=== PATIENT | female | born 1990 | race Caucasian/White ===

== ENCOUNTER 2018-08-16 18:58 | Emergency (ER) | payer SELFPAY ==
[~2018-08-16] VITALS: Ht 162.6 cm; Wt 73.5 kg
[2018-08-16 19:40] VITALS: Ht 162.6 cm; Wt 73.5 kg
[2018-08-16] MEDS ORDERED: KETOROLAC 60 MG INJ IM STA (23:49)
[2018-08-17] MEDS ORDERED: ACYC400T2 PO (01:17)
[2018-08-17] MEDS ORDERED: CEPH-443 PO (01:17)
[2018-08-17] MEDS ORDERED: FLUC150T PO (01:17)
[2018-08-17 01:22] VITALS: BP 111/69; PULSE 80; RESP 19
[2018-08-17] MEDS ORDERED: FLUCONAZOLE 150 MG TAB PO ONE (01:30)
--- NOTE | 2018-08-18 22:39 | ERD ---
ER Documentation Chief Complaint Chief Complaint DX WITH YEAST INFECTION AT CLINIC. C/O VAGINAL PAIN HPI 27-year-old female patient with patient diabetes presents the ED pain and itchiness. Patient reports that the last time this happened, she had a diagnosis of herpes, feels like it is burning on the outside of her vagina. States that she also has right she is a discharge, and is also itchy. Patient reports that she has one sexual partner. States that her last menstruation was on July 22, 2017. Patient is a . Patient reports that she has been taking Monistat for the last 2 days out of a 7-day course. Denies any hematuria, nausea, vomiting, abdominal pain, chest pain, pelvic pain, shortness of breath. ROS All systems reviewed and are negative except as per history of present illness. Medications Home Meds Active Scripts Fluconazole* (Diflucan*) 150 Mg Tablet, 150 MG PO ONCE, #2 TAB repeat 1 tab on day 4 and day 8 (every 72 hours) Prov:BALBIR TEMPLE PA-C 08/17/18 Cephalexin* (Keflex*) 500 Mg Capsule, 500 MG PO QID for 7 Days, CAP Prov:BALBIR TEMPLE PA-C 08/17/18 Acyclovir* (Acyclovir*) 400 Mg Tablet, 400 MG PO TID for 10 Days, TAB Prov:BALBIR TEMPLE PA-C 08/17/18 Allergies Allergies: Coded Allergies: No Known Allergy (Unverified , 08/17/18) PMhx/Soc History of Surgery: Yes ( X1) Hx Miscellaneous Medical Probl: Yes (DM, GENITAL HERPES) Hx Alcohol Use: Yes (OCCASIONAL) Hx Substance Use: No Hx Tobacco Use: No Smoking Status: Never smoker FmHx Family History: No diabetes, No coronary disease Physical Exam Vitals Vital Signs Date Temp Pulse Resp B/P (MAP) Pulse Ox O2 O2 Flow FiO2 Time Delivery Rate 08/17/18 98.6 80 19 111/69 98 Room Air 01:22 (83) 08/16/18 98.5 87 16 129/75 100 19:40 (93) Physical Exam Const: Dco-xab-[id number], well-nourished. In no acute distress. Head: Atraumatic, normocephalic Eyes: Normal Conjunctiva without injection. No purulent discharge. ENT: Normal external ear, nose. Moist oropharynx without tonsillar exudates. Non-erythematous pharynx. Uvula midline. No drooling. No trismus. Neck: No cervical midline tenderness. Full range of motion. No meningismus. No cervical lymphadenopathy. No JVD. Resp: Clear to auscultation bilaterally. No wheezing, rhonchi, rales, or crackles. No accessory muscle use. No retractions. Cardio: Regular rate and rhythm. No murmurs, rubs or gallops. Abd: Soft, nontender, non distended. Normal bowel sounds. No palpable masses. No rebound tenderness. No guarding. Negative McBurney's point. Negative psoas sign. Negative obturator sign. : See MDM Skin: No petechiae or rashes Back: No midline tenderness. No CVA tenderness. Ext: No cyanosis, or edema. Neur: Awake and alert. Normal gait. Normal coordination. Psych: Normal Mood and Affect Results 24 hrs Laboratory Tests Test 08/16/18 22:58 08/16/18 23:00 08/16/18 23:02 08/17/18 00:29 Chlamydia NOT DETECTED trachomatis RNA (TMA) Chlamydia/GC SEE NOTE Comment Neisseria NOT DETECTED gonorrhoeae RNA (TMA) Bedside Urine pH 7.0 (LAB) Bedside Urine Negative Protein (LAB) Bedside Urine 0.50% Glucose (UA) Bedside Urine 4+ Ketones (LAB) Bedside Urine Blood Trace-intact Bedside Urine Positive Nitrite (LAB) Bedside Urine 1+ Leukocyte Esterase (L POC Beta HCG, NEGATIVE Qualitative Bedside Glucose 244 mg/dL Current Medications Medications Dose Sig/Delfina Start Time Status Last (Trade) Ordered Route PRN Stop Time Admin Dose Reason Admin Ketorolac 60 mg ONCE STAT 08/16/18 DC 08/16/18 Tromethamine IM 23:49 23:53 (Toradol) 08/16/18 23:50 Fluconazole 150 mg ONCE ONCE 08/17/18 DC 08/17/18 (Diflucan) PO 01:30 01:29 08/17/18 01:31 Procedures/MDM 27-year-old female patient with a past medical history of diabetes presents to ED complaining of having diagnosis of yeast infection, also concerned about herpes. 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 Patient will be treated for urinary tract infection. Based on patient's pelvic exam, patient also was noted to have grouped vesicles on the lower portion, patient will also be treated for herpes. Patient's wet mount came back with 1+ yeast, patient has diabetes, patient given her first dose of Diflucan here in the ED will be given 2 additional tabs to be taken every 72 hours apart. Diagnosis: Female Genital Symptoms Discharge medications: Acyclovir, Diflucan, Keflex Follow up with primary care physician in 1-2 days for referral to see THERMOPLASTIC TECHNICIAN. Instructed patient to return to the ED sooner for any worsening symptoms. Patient's questions were answered. Patient is hemodynamically stable. Patient understood and agreed with discharge plan. Patient discharged stable. Disclaimer: Inadvertent spelling and grammatical errors are likely due to EHR/dictation software use and do not reflect on the overall quality of patient care. Also, please note that the electronic time recorded on this note does not necessarily reflect the actual time of the patient encounter. Departure Diagnosis: Primary Impression: Female genital symptoms Condition: Stable Patient Instructions: Hyperglycemia (High Blood Sugar), Urinary Tract Infections in Women, Vaginal Infection: Yeast (Candidiasis), Herpes Genitalis, Hsv: Type Ii Referrals: [facility] YOU HAVE RECEIVED A MEDICAL SCREENING EXAM AND THE RESULTS INDICATE THAT YOU DO NOT HAVE A CONDITION THAT REQUIRES URGENT TREATMENT IN THE EMERGENCY DEPARTMENT. FURTHER EVALUATION AND TREATMENT OF YOUR CONDITION CAN WAIT UNTIL YOU ARE SEEN IN YOUR DOCTORS OFFICE WITHIN THE NEXT 1-2 DAYS. IT IS YOUR RESPONSIBILITY TO MAKE AN APPOINTMENT FOR FOLOW-UP CARE. IF YOU HAVE A PRIMARY DOCTOR --you should call your primary doctor and schedule an appointment IF YOU DO NOT HAVE A PRIMARY DOCTOR YOU CAN CALL OUR PHYSICIAN REFERRAL HOTLINE AT IF YOU CAN NOT AFFORD TO SEE A PHYSICIAN YOU CAN CHOSE FROM THE FOLLOWING [facility] [id number] [facility] [address] [facility] [address] [facility] [address] [facility] [address] [facility]. [facility]. [address] [facility]. [facility] YOU HAVE RECEIVED A MEDICAL SCREENING EXAM AND THE RESULTS INDICATE THAT YOU DO NOT HAVE A CONDITION THAT REQUIRES URGENT TREATMENT IN THE EMERGENCY DEPARTMENT. FURTHER EVALUATION AND TREATMENT OF YOUR CONDITION CAN WAIT UNTIL YOU ARE SEEN IN YOUR DOCTORS OFFICE WITHIN THE NEXT 1-2 DAYS. IT IS YOUR RESPONSIBILITY TO MAKE AN APPOINTMENT FOR FOLOW-UP CARE. IF YOU HAVE A PRIMARY DOCTOR --you should call your primary doctor and schedule and appointment IF YOU DO NOT HAVE A PRIMARY DOCTOR YOU CAN CALL OUR PHYSICIAN REFERRAL HOTLINE AT . IF YOU CAN NOT AFFORD TO SEE A PHYSICIAN YOU CAN CHOSE FROM THE FOLLOWING [facility] INSTITUTIONS: [facility] [address] [place] [address] [facility] [address] [place] [address] [facility] + [facility] [address] [place] [address] [facility] URGENT CARE/SPECIALTIES Additional Instructions: Call your primary care doctor TOMORROW for an appointment during the next 2-3 days.See the doctor sooner or return here if your condition worsens before your appointment time. BALBIR TEMPLE PA-C Aug 18, 2018 22:27
== END 2018-08-17 01:35 | disposition home or self-care (01) ==
LOC: FTE 18:58
DX: R10.2 Pelvic and perineal pain (principal); E11.9 Type 2 diabetes mellitus without complications
CPT/HCPCS: 81003; 81025; 82962; 87210; 87591; J1885; 87220; 96372